=== PATIENT | male | born 1980 | race American Indian/Alaskan Native ===

== ENCOUNTER 2019-12-04 10:57 | Outpatient (CLI) | payer OTHER ==
--- NOTE | 2019-12-04 11:43 | XRay Report ---
RIGHT HAND 2 VIEWS and right wrist 2 views INDICATION / CLINICAL INFORMATION: Pain following trauma. COMPARISON: None available. FINDINGS: Right hand 2 views Deformity of the fifth metatarsal, due to old trauma. Moderately advanced degenerative change at the first and second carpal metacarpal joints. No acute fracture. Right wrist 2 views Advanced degenerative change at the first and second carpal metacarpal joints. No fracture, dislocati on or other acute abnormality. IMPRESSION: Degenerative changes and posttraumatic deformity, as described, but no acute abnormalities. Signer Name: Fabrice Salas MD Signed: 12/04/2019 11:39 AM Workstation Name: [id number]
== END 2019-12-04 10:58 | disposition home or self-care (01) ==
LOC: XRAY 10:57
PROVIDERS: ATTEND Internal Medicine
DX: M18.31 Unilateral post-traumatic osteoarthritis of first carpometacarpal joint, right hand (principal); M19.141 Post-traumatic osteoarthritis, right hand